=== PATIENT | female | born 2000 | race Two or more races ===

== ENCOUNTER 2024-09-17 21:25 | Emergency (ER) | payer MEDICAID ==
[~2024-09-17] VITALS: Ht 165.1 cm; Wt 54.8 kg
[2024-09-17 22:22] LABS: BASOPHILS % (AUTO) 0.3 % (0-1); EOSINOPHILS # (AUTO) 0.1 X10'3 (0-0.9); EOSINOPHILS % (AUTO) 0.6 % (0-6); HEMATOCRIT 40.6 % (35.0-45.0); HEMOGLOBIN 13.7 g/dl (12.0-16.0); LYMPHOCYTES # (AUTO) 0.5 X10'3 (1.1-4.8); LYMPHOCYTES % (AUTO) 5.3 % (21-51); MEAN CORPUSCULAR HEMOGLOBIN 30.7 PG (27.0-31.0); MEAN CORPUSCULAR HGB CONC 33.7 g/dL (33.0-36.5); MEAN CORPUSCULAR VOLUME 91.3 FL (78-98); MEAN PLATELET VOLUME 8.1 FL (7.4-10.4); MONOCYTES # (AUTO) 0.6 X10'3 (0-0.9); MONOCYTES % (AUTO) 6.3 % (2-12); NEUTROPHILS # (AUTO) 8.4 X10'3 (1.8-7.7); NEUTROPHILS % (AUTO) 87.5 % (42-75); PLATELET COUNT 238 X10'3 (140-440); RED BLOOD COUNT 4.45 X10'6 (4.20-5.60); WHITE BLOOD COUNT 9.6 X10'3 (4.5-11.0)
[2024-09-17 22:36] LABS: ALANINE AMINOTRANSFERASE 33 U/L (12-78); ALBUMIN 3.4 G/DL (3.4-5.0); ALKALINE PHOSPHATASE 83 IU/L (46-116); ANION GAP 9 (8-16); ASPARTATE AMINO TRANSFERASE 50 U/L (10-37); BILIRUBIN,TOTAL 0.4 MG/DL (0.1-1.0); BLOOD UREA NITROGEN 7 MG/DL (7-18); BUN/CREATININE RATIO 9.2 (10.0-20.0); CALCIUM 8.4 MG/DL (8.5-10.1); CHLORIDE 105 MMOL/L (99-107); CREATININE 0.76 MG/DL (0.40-0.90); GLUCOSE 111 MG/DL (70-104); LIPASE 27 U/L (16-77); POTASSIUM 3.2 MMOL/L (3.5-5.1); SODIUM 140 MMOL/L (135-145); TOTAL CARBON DIOXIDE 25.6 MMOL/L (24-32); TOTAL PROTEIN 6.9 G/DL (6.4-8.2); eCRCL 97 ML/MIN; eGFR > 90 ML/MIN
--- NOTE | 2024-09-18 01:20 | Physician Documentation ---
History of Present Illness ~ Chief Complaint: Abdominal Pain Stated Complaint: ABDOMINAL PAIN Time Seen by MD: 01:19 HPI Patient presents to the emergency room with two day history of epigastric pain. Pain is exacerbated with food. Positive association of nausea. No past medical history. Denies history of reflux or abdominal surgeries. No fevers. Positive diarrhea. Positive nausea with vomiting yesterday. Symptoms have improved with [id number] pain medication. Medication Reconciliation Allergies: Coded Allergies: No Known Allergies (Unverified , 09/17/24) Scheduled Loperamide Hcl (Loperamide), 2 CAP PO Q6H Ondansetron 8mg ODT (Ondansetron Odt), 1 TAB PO Q6H Review of Systems ROS All review of systems negative except as per HPI Physical Exam Vital Signs: Temperature: 99.4, Source: Oral, Heart Rate: 87, Respiratory Rate: 18, BP: 115/73, Pulse Oximetry: 100, Weight: 54.800 Oxygen Flow Rate: 0 Physical Exam General: Patient is awake, alert, oriented x4 in no acute distress Head: Normocephalic and atraumatic. Eyes: Conjunctival normal. EOMI. PERRL. ENT: Mucous membranes moist. Neck: Supple, trachea is midline. Chest: Clear to auscultation bilaterally without rales, rhonchi, or wheezes. There is no accessory muscle use or retractions. Cardiac: RRR without murmurs, gallops, or rubs. Abd: Soft, nondistended, mild epigastric tenderness to palpation without peritonitis Progress Results/Orders Results/Orders Completed Orders - SLADE MEJÍA MD Hcg, Ur Ql (09/17/24 22:03) Cbc/Diff (09/17/24 22:03) BMP (09/17/24 22:03) Lipase (09/17/24 22:03) CMP (09/17/24 22:03) Ondansetron Disint. Tablet (Zofran Odt T (09/18/24 01:35) Mag & Alum Hydrox/Simeth Susp (Maalox Or (09/18/24 01:35) Lidocaine 2% Viscous (Xylocaine 2% Visco (09/18/24 01:35) Ua W/Microscopic, Cult If Ind (09/18/24 01:55) Medications Received in ER Medications (Trade) Dose Ordered Sig/Kalpana Route PRN Reason Start Time Stop Time Status Last Admin Dose Admin (Zofran ODT tablet) 4 mg ONCE ONCE PO 09/18/24 01:35 09/18/24 01:36 DC 09/18/24 01:41 4 MG (Maalox oral suspension) 30 ml ONCE ONCE PO 09/18/24 01:35 09/18/24 01:36 DC 09/18/24 01:41 30 ML (Xylocaine 2% Viscous 15mL cup) 15 ml ONCE ONCE MM 09/18/24 01:35 09/18/24 01:36 DC 09/18/24 01:41 15 ML Vital Signs 09/17/24 09/18/24 09/18/24 21:47 01:19 01:25 Temp 99.4 Pulse 87 67 Resp 18 18 18 B/P (MAP) 115/73 97/60 (72) Pulse Ox 100 100 O2 Flow Rate 0 Laboratory Tests Test 09/17/24 22:16 09/18/24 01:55 White Blood Count 9.6 Red Blood Count 4.45 Hemoglobin 13.7 Hematocrit 40.6 Mean Corpuscular Volume 91.3 Mean Corpuscular Hemoglobin 30.7 Mean Corpuscular Hemoglobin Concent 33.7 Red Cell Distribution Width 13.0 Platelet Count 238 Mean Platelet Volume 8.1 Neutrophils (%) (Auto) 87.5 H Lymphocytes (%) (Auto) 5.3 L Monocytes (%) (Auto) 6.3 Eosinophils (%) (Auto) 0.6 Basophils (%) (Auto) 0.3 Neutrophils # (Auto) 8.4 H Lymphocytes # (Auto) 0.5 L Monocytes # (Auto) 0.6 Eosinophils # (Auto) 0.1 Basophils # (Auto) 0.0 CBC Comment Sodium Level 140 Potassium Level 3.2 L Chloride Level 105 Carbon Dioxide Level 25.6 Anion Gap 9 Blood Urea Nitrogen 7 Creatinine 0.76 Estimated GFR/1.73 m2 > 90 BUN/Creatinine Ratio 9.2 L Glucose Level 111 H Calcium Level 8.4 L Total Bilirubin 0.4 Aspartate Amino Transf (AST/SGOT) 50 H Alanine Aminotransferase (ALT/SGPT) 33 Alkaline Phosphatase 83 Total Protein 6.9 Albumin 3.4 Globulin 3.5 Albumin/Globulin Ratio 1.0 L Lipase 27 Chemistry Comments Urine Specimen Description Cln catch midstream Urine Color Yellow Urine Clarity Clear Urine pH 6.0 Urine Specific Jewett <=1.005 Urine Protein Negative Urine Glucose (UA) Negative Urine Ketones 15 H Urine Occult Blood Small Urine Nitrite Negative Urine Bilirubin Negative Urine Urobilinogen 0.2 Urine Leukocyte Esterase Negative Urine RBC 0-2 Urine WBC 0-4 Urine Squamous Epithelial Cells Moderate Urine Bacteria Few Urine Culture Indicated Not ind Volume Urine Centrifuged 10 ml Urine HCG, Qualitative Negative Urine Comment Medical Decision Making Findings Patient's pain resolved. Patient presented to the emergency room for evaluation of epigastric pain with associated vomiting and diarrhea. Differentials include but are not limited to cholecystitis gastroenteritis reflux gas pancreatitis diverticulitis therefore emergent labs ordered which were reassuring. Patient insists that the GI cocktail did not cause the relief of her symptoms but feels that has a release of gas. Regardless, she is feeling better and he had not feel she requires any imaging at this time. ER precautions discussed. Departure Disposition: HOME / SELF CARE / HOMELESS Impression: Primary Impression: Acute gastroenteritis Condition: Improved Discharge Instructions: Viral Gastroenteritis, Adult Departure Forms: Excuse form Work or School Excused From: Work Excuse beginning now through the following date: Sep 20, 2024 May Return but still avoid physical Activity from now until: Sep 20, 2024 May Return to full physical activity as of: Sep 20, 2024 Referrals: NO PRIMARY CARE PROVIDER (PCP) Prescriptions Loperamide Hcl (Loperamide) 2 Mg Capsule 2 CAP PO Q6H for loose stool for 5 Days, #40 CAP 0 Refills Prov: SLADE MEJÍA MD 09/18/24 Ondansetron 8mg ODT (Ondansetron Odt) 8 Mg Tab.rapdis 1 TAB PO Q6H for nausea/vomiting for 3 Days, #12 TAB 0 Refills Prov: SLADE MEJÍA MD 09/18/24 Education Educated: Patient, Family Educated regarding: diagnosis, treatment, need for follow up Signature Scribe Signature: No scribe Attestation: The note accurately reflects work and decisions made by me.Slade Mejía MD 09/18/24 02:57 SLADE MEJÍA MD Sep 18, 2024 01:20
[2024-09-18] MEDS: LIDOcaine 2% Viscous 15ml cup MM ONE (01:41)
[2024-09-18] MEDS: mag hydrox/Alum hydrox/simeth 30ml oral suspension PO ONE (01:41)
[2024-09-18] MEDS: ondansetron 4mg rapidly disintigrating tab PO ONE (01:41)
[2024-09-18 02:06] LABS: BILIRUBIN,URINE NEGATIVE (Neg); CLARITY,URINE CLEAR (Clear); COLOR,URINE YELLOW (Yellow); GLUCOSE, URINE NEGATIVE (Neg); KETONES,URINE 15 mg/dl (Neg); LEUKOCYTE ESTERASE ,URINE NEGATIVE (Neg); NITRITES, URINE NEGATIVE (Neg); OCCULT BLOOD,URINE SMALL (Neg); PROTEIN,URINE NEGATIVE (Neg); UROBILINOGEN,URINE 0.2 E.U/dL (0.2-1.0)
[2024-09-18 02:09] LABS: URINE HCG NEGATIVE (NEG)
[2024-09-18 02:18] LABS: UA COLLECTION TYPE CLN CATCH MIDSTREAM
[2024-09-18 02:19] LABS: BACTERIA,URINE FEW /HPF (Neg); RBC,URINE 0-2 /HPF (0-2); SQUAMOUS EPITHELIAL CELL,UR MODERATE /LPF (FEW); WBC,URINE 0-4 /HPF (0-4)
[2024-09-18] MEDS ORDERED: ONDA-245 PO (02:53)
[2024-09-18] MEDS ORDERED: LOPE2CAP PO (02:53)
[2024-09-18 03:03] VITALS: BP 96/54; PULSE 72; RESP 16; TEMP 98.6; O2SAT 98
== END 2024-09-18 03:10 | disposition home or self-care (01) ==
LOC: ER 21:26
DX: K52.9 Noninfective gastroenteritis and colitis, unspecified (principal)
CPT/HCPCS: 36415; 80053; 81001; 81025; 83690; 85025; 99284

== ENCOUNTER 2024-11-09 12:11 | Emergency (ER) | payer MEDICAID ==
[~2024-11-09] VITALS: Ht 165.1 cm; Wt 60.5 kg
[~2024-11-09 12:11] MED LIST: LOPE2CAP PO; ONDA-245 PO
--- NOTE | 2024-11-09 12:22 | Physician Documentation ---
History of Present Illness ~ Chief Complaint: Wound Stated Complaint: FOOT PAIN Time Seen by MD: 12:20 HPI This 24-year-old female presents to the emergency department that reporting that she had an injury to the bottom of her left foot approximately two weeks ago. Since that time, she has had pain when walking on that foot. She denies chills or fever. She is unsure when her last tetanus was. Tetanus within 5 years?: Yes Medication Reconciliation Allergies: Coded Allergies: No Known Allergies (Unverified , 09/17/24) Scheduled Loperamide Hcl (Loperamide), 2 CAP PO Q6H Ondansetron 8mg ODT (Ondansetron Odt), 1 TAB PO Q6H Review of Systems ROS As stated above in the HPI, otherwise all systems are reviewed and negative. Physical Exam Vital Signs: Temperature: 99.1, Source: Oral, Heart Rate: 85, Respiratory Rate: 18, BP: 110/75, Pulse Oximetry: 100, Weight: 60.500 Oxygen Flow Rate: 0 Physical Exam General: Alert, no apparent distress. Neck: Full range of motion. Respiratory: Lungs clear, no respiratory distress. Chest: No accessory muscle use. Cardiovascular: Regular rate and rhythm, no murmurs. Gastrointestinal: Soft, nontender, nondistended. Bowels sounds present. Extremities: Normal range of motion, no deformity. Neurologic: Oriented x4. Psychiatric: Normal mood and affect. Skin: Normal color, warm and dry. No edema, no ecchymosis. Well-healed superficial laceration bottom of left foot medial to toes 2 and 3. No erythema. TTP. Progress Results/Orders Results/Orders Orders - VANIA PAVON NP Foot, Complete (3vw Min) (11/09/24 12:31) Completed Orders - VANIA PAVON NP Foot, Complete (3vw Min) (11/09/24 12:31) Tetanus/Pertuss/Diph Acell/Pf (Boostrix (11/09/24 12:35) Medications Received in ER Medications (Trade) Dose Ordered Sig/Kalpana Route PRN Reason Start Time Stop Time Status Last Admin Dose Admin (Boostrix vaccine syringe) 0.5 ml ONCE ONCE IMVAC 11/09/24 12:35 11/09/24 12:36 DC 11/09/24 12:45 0.5 ML Vital Signs 11/09/24 12:15 Temp 99.1 Pulse 85 Resp 18 B/P (MAP) 110/75 Pulse Ox 100 O2 Flow Rate 0 EKG/XRAY/CT/US/VASC/MRI Bone/Soft Tissue X-Ray (Spine) : Additional Comment [facility] [address] , [place], [facility] [id number] DIAGNOSTIC RADIOLOGY Patient: SANJUANITA CALLE Medical Record: [id number] [facility] 2000, Age: 24 Sex: Female Location: ER Patient Status: [facility] ER Service Date/Time: 11/09/24/ 1231 Ordering Physician: VANIA PAVON NP Exam: FOOT, COMPLETE (3VW MIN) DI FOOT, COMPLETE (3VW MIN), INDICATION: foreign body TECHNICAL DATA: Frontal, oblique and lateral views were obtained of the left foot. COMPARISON: None FINDINGS: No fracture is identified. Joint spaces are maintained. Alignment is anatomic. The hallux sesamoids appear normal. Soft tissues are within normal limits. IMPRESSION: No foreign body seen. No acute fracture or dislocation of the left foot. Electronically Signed by:BRAYDEN PARADA MD Date & Time: 11/09/24 1315 Dictated by: BRAYDEN PARADA MD Dictation date and time: 11/09/24 1244 Primary Care Provider: NO PRIMARY CARE PROVIDER cc: VANIA PAVON PIEROGI MAKER ~ Medical Decision Making Differential Dx:Considerations: Include: Abscess, Cellulitis, Dressing change, Healing wound Additional Comment Superficial wound. No fracture. No foreign body. No emergent condition identified. D/C home to f/u with PCP and request ortho followup if PCP deems appropriate. Departure Time of Disposition: 13:36 Disposition: 01 HOME / SELF CARE / HOMELESS Impression: Primary Impression: Wound Condition: Stable Discharge Instructions: Abrasion Additional Instructions: Your xray showed no foreign body. No fracture. You may have sustained some nerve injury when the original injury happened. Followup with primary care and request a referral to ortho if they feel it is warranted. Return if worse such as with redness, swelling, worsening pain. Referrals: NO PRIMARY CARE PROVIDER (PCP) Education Educated: Patient, Family Educated regarding: diagnosis, treatment, prognosis, need for follow up Signature Scribe Signature: x Attestation: The note accurately reflects work and decisions made by me.Vania Alexander NP 11/09/24 12:33 VANIA PAVON NP Nov 09, 2024 12:22
[2024-11-09] MEDS: TETanus/Pertussis (Acell)/Diphther VAC/PF (Tdap-Adult) 0.5ml syringe IMVAC ONE (12:45)
--- NOTE | 2024-11-09 13:18 | RADIOLOGY REPORT ---
DI FOOT, COMPLETE (3VW MIN), INDICATION: foreign body TECHNICAL DATA: Frontal, oblique and lateral views were obtained of the left foot. COMPARISON: None FINDINGS: No fracture is identified. Joint spaces are maintained. Alignment is anatomic. The hallux sesamoids a ppear normal. Soft tissues are within normal limits. IMPRESSION: No foreign body seen. No acute fracture or dislocation of the left foot.
[2024-11-09 13:44] VITALS: BP 108/64; PULSE 70; RESP 18; TEMP 99.1; O2SAT 98
== END 2024-11-09 13:45 | disposition home or self-care (01) ==
LOC: ER 12:12
DX: M79.672 Pain in left foot (principal); Z79.899 Other long term (current) drug therapy
CPT/HCPCS: 73630; 90471; 90715; 99283